=== PATIENT | male | born 1950 | race Caucasian/White ===

== ENCOUNTER 2016-06-18 16:17 | Emergency (ER) | payer MEDICARE, OTHER ==
[~2016-06-18] VITALS: Ht 177.8 cm; Wt 110.4 kg
[~2016-06-18 16:17] MED LIST: LISI2.5T PO
--- OUTSIDE RECORDS SUMMARY | 2016-06-18 16:21 | XMS REPORT | Continuity of Care Document ---
Author Author [facility] Address Unknown Phone Unavailable Allergies Active Description Code Type Severity Reaction Onset Reported/Identified Relationship to Patient Clinical Status Yes No Known Drug Allergies [id number] Drug Allergy Unknown N/ A 07/18/2014 Medications Problems Date Dx Coded Attending Type Code Diagnosis Diagnosed By 07/18/2014 Ot 729.1 09/24/2015 Ot 729.1 MYALGIA AND MYOSITIS NOS Procedures Results Encounters ACCT No. Visit Date/Time Discharge Status Pt. Type Provider Facility Loc./Unit Complaint [id number] 07/18/2014 11:24:00 2014 13:50:00 DIS Emergency WILBERT WILIKNS, EVA Draper [facility] ED [id number] 04/26/2014 10:36:00 Document Registration
[2016-06-18] MEDS ORDERED: TETANUS, DIPTHERIA, PERTUSSIS (ADACELL) VACCINE 0.5 ML VIAL IM ONE (16:30)
--- OUTSIDE RECORDS SUMMARY | 2016-06-18 16:30 | XMS REPORT | Continuity of Care Document ---
Author Author [facility] Address Unknown Phone Unavailable Allergies Active Description Code Type Severity Reaction Onset Reported/Identified Relationship to Patient Clinical Status Yes No Known Drug Allergies [id number] Drug Allergy Unknown N/ A 07/18/2014 Medications Problems Date Dx Coded Attending Type Code Diagnosis Diagnosed By 07/18/2014 Ot 729.1 09/24/2015 Ot 729.1 MYALGIA AND MYOSITIS NOS Procedures Results Encounters ACCT No. Visit Date/Time Discharge Status Pt. Type Provider Facility Loc./Unit Complaint [id number] 07/18/2014 11:24:00 2014 13:50:00 DIS Emergency WILBERT WILKINS, EVA Draper [facility] ED [id number] 04/26/2014 10:36:00 Document Registration
[2016-06-18] MEDS ORDERED: BACITRACIN OINTMENT 0.9 GM PACKET TOP ONE (16:40)
[2016-06-18 19:38] VITALS: BP 132/81
== END 2016-06-18 17:23 | disposition home or self-care (01) ==
LOC: ED 16:26
DX: S91.332A Puncture wound without foreign body, left foot, initial encounter (principal); W22.09XA Striking against other stationary object, initial encounter; Y92.89 Other specified places as the place of occurrence of the external cause
CPT/HCPCS: 90471; 90715; 99283; A9270; 99282